=== PATIENT | female | born 1985 | race Caucasian/White ===

== ENCOUNTER 2019-09-12 13:32 | Emergency (ER) | payer OTHER ==
[~2019-09-12] VITALS: Ht 175.3 cm; Wt 79.8 kg
[2019-09-12 13:52] VITALS: BP_SYST 129
--- NOTE | 2019-09-12 14:00 | NUR ---
Patient to ER bed 8 to gown for evaluation. Side rails up.
--- NOTE | 2019-09-12 14:05 | NUR ---
ER at bedside examining patient.
[2019-09-12] MEDS ORDERED: ONDANSETRON HCL 4 MG/2 ML VIAL IVP ONE (14:15)
[2019-09-12] MEDS ORDERED: NACL 0.9% 1,000 ML IV ONE (14:15)
--- NOTE | 2019-09-12 14:20 | NUR ---
PT C/O WEAKNESS W/ HISTORY OF IDDM. PT REPORTS ELEVATED KETONES
[2019-09-12 14:52] LABS: ANION GAP 12 (5-15); BASOPHILS # (AUTO) 0.1 K/uL (0.0-0.2); BASOPHILS % (AUTO) 0.5 % (0.0-2.0); CALCIUM 8.6 mg/dL (8.4-11.0); CHLORIDE 99 mmol/L (98-107); CREATININE 0.64 mg/dL (0.55-1.30); EOSINOPHILS % (AUTO) 0.2 % (0.0-4.0); GLUCOSE 169 mg/dL (70-99); HEMATOCRIT 44.8 % (36-48); HEMOGLOBIN 14.5 g/dL (12.0-16.0); LYMPHOCYTES # (AUTO) 0.5 K/uL (1.0-5.5); LYMPHOCYTES % (AUTO) 2.4 % (20.5-51.5); MEAN CORPUSCULAR HEMOGLOBIN 30 pg (27-31); MEAN CORPUSCULAR HGB CONC 32 % (32-36); MEAN CORPUSCULAR VOLUME 93 fL (79.0-98.0); MONOCYTES # (AUTO) 0.3 K/uL (0.0-1.0); MONOCYTES % (AUTO) 1.7 % (1.7-9.3); NEUTROPHILS # (AUTO) 19.4 K/uL (1.8-7.7); NEUTROPHILS % (AUTO) 95.2 % (40.0-70.0); PLATELET COUNT (AUTO) 264 K/uL (130-430); POTASSIUM 3.9 mmol/L (3.5-5.1); RED BLOOD CELL COUNT(AUTO) 4.83 MIL/uL (4.2-6.2); RED CELL DISTRIBUTION WIDTH 13.8 % (9.0-15.0); SODIUM SERUM 133 mmol/L (136-145); UREA NITROGEN, BLOOD 15 mg/dL (8-21); WHITE BLOOD COUNT (AUTO) 20.3 K/uL (4.8-10.8)
[2019-09-12 14:58] LABS: ALANINE AMINOTRANSFERASE 18 U/L (12-78); ALBUMIN 3.9 g/dL (3.4-4.8); ASPARTATE AMINOTRANSFERASE 20 U/L (10-37); TOTAL BILIRUBIN 1.2 mg/dL (0.0-1.0)
[2019-09-12 15:00] LABS: GFR AFRICAN AMERICAN 137 mL/min (>90)
[2019-09-12 15:02] LABS: BILIRUBIN,URINE NEGATIVE (NEGATIVE); BLOOD, URINE NEGATIVE (NEGATIVE); CLARITY/URINE CLEAR (CLEAR); COLOR,URINE YELLOW (YELLOW); GLUCOSE,URINE 2+ (NEGATIVE); KETONES,URINE 3+ (NEGATIVE); LEUKOCYTE ESTERASE ,URINE NEGATIVE (NEGATIVE); NITRITE, URINE NEGATIVE (NEGATIVE); PH,URINE 5.5 (5.0-8.0); PROTEIN URINE NEGATIVE (NEGATIVE); UROBILINOGEN,URINE 0.2 (0.2-1.0)
[2019-09-12 15:08] LABS: ACETONE, SERUM NEGATIVE (NEGATIVE)
--- NOTE | 2019-09-12 15:20 | NUR ---
PT TOLERATED MEDICATION WELL.
[2019-09-12 15:52] VITALS: BP_SYST 129
--- NOTE | 2019-09-12 15:52 | NUR ---
Patient given written and verbal discharge instructions and verbalizes understanding. ER MD discussed with patient the results and treatment provided. Patient in stable condition. ID arm band removed. IV catheter removed intact and dressing applied, no active bleeding. Rx of ZOFRAN given. Patient educated on pain management and to follow up with PMD. Pain Scale 0. Opportunity for questions provided and answered. Medication side effect fact sheet provided.
== END 2019-09-12 15:52 | disposition home or self-care (01) ==
LOC: SED 13:32
DX: A08.4 Viral intestinal infection, unspecified (principal); E86.0 Dehydration; E11.9 Type 2 diabetes mellitus without complications; Z88.6 Allergy status to analgesic agent
CPT/HCPCS: 36415; 80053; 81003; 82009; 85025; 96374; 99283; J2405; J7030